=== PATIENT | male | born 1980 | race Caucasian/White ===

== ENCOUNTER 2023-11-07 10:52 | Emergency (ER) | payer OTHER, SELFPAY ==
[2023-11-07 10:52] VITALS: BP 153/84; PULSE 88; RESP 14; TEMP 36.8; O2SAT 100; BMI 30.8
--- NOTE | 2023-11-07 11:17 | ED_ITS ---
HPI - Back Pain/Injury <Denise Perez PA-C - Last Filed: 11/07/23 17:05> General Chief Complaint: Back Pain/Injury Stated Complaint: Right sided back pain Time Seen by Provider: 11/07/23 11:16 Source: patient History of Present Illness HPI Narrative: 43-year-old male with no reported past medical history presents to the ED with right-sided lower back pain since this morning. Patient states that he tweaked his lower back in the same location a few days ago when he fell off the bed but recovered from that. This morning, he endorses making a awkward movement when trying to leash his dog and tweaked the same spot again. Patient states that he took 600 mg of ibuprofen at 7:00 a.m. without relief. Patient states that he has been unable to stand up and straighten up and that his right lower back feels very stiff. Pain does not radiate down into the legs. No numbness, tingling, weakness. Patient has not urinated since the onset of pain this morning, however has not felt the need to urinate either. Related Data Previous Rx's Medication Instructions Recorded cyclobenzaprine 10 mg tablet 10 mg PO TID PRN muscle spasm 3 11/07/23 days #9 tabs oxycodone-acetaminophen 5 mg-325 1 tab PO Q4-6H PRN pain #9 tabs 11/07/23 mg tablet (Percocet) oxycodone-acetaminophen 5 mg-325 1 tab PO Q8H PRN pain 3 days #9 11/07/23 mg tablet (Percocet) tabs Allergies Allergy/AdvReac Type Severity Reaction Status Date / Time No Known Drug Allergies Allergy Verified 11/07/23 10:58 Review of Systems <Denise Perez PA-C - Last Filed: 11/07/23 17:05> Constitutional Constitutional: Denies chills, Denies fatigue, Denies fever(s), Denies frequent falls, Denies lethargy and Denies weakness Eyes Eyes: Denies change in vision, Denies eye discharge, Denies irritation and Denies loss of vision ENT Ears, Nose, Mouth, and Throat: Denies change in voice, Denies dizziness, Denies neck pain, Denies sore throat and Denies throat swelling Cardiovascular Cardiovascular: Denies chest pain, Denies irregular heart rhythm, Denies lightheadedness, Denies palpitations, Denies dyspnea, Denies dyspnea on exertion and Denies orthopnea Respiratory Respiratory: Denies cough, Denies dyspnea, Denies dyspnea on exertion and Denies wheezing Gastrointestinal Gastrointestinal: Denies abdominal pain, Denies change in bowel habits, Denies diarrhea, Denies nausea and Denies vomiting Musculoskeletal Musculoskeletal: Reports back pain, Denies neck pain and Denies numbness Integumentary/Breasts Skin/Breast: Denies pruritus, Denies erythema, Denies rash and Denies wounds Neurologic Neurologic: Denies behavioral changes, Denies confusion, Denies dizziness, Denies frequent falls, Denies loss of vision, Denies numbness and Denies weakness Psychiatric Psychiatric: Denies anxiety, Denies behavioral changes, Denies confusion, Denies depression, Denies homicidal ideation and Denies suicidal ideation Endocrine Endocrine: Denies fatigue, Denies flushing and Denies palpitations Hematologic/Lymphatic Hematologic/Lymphatic: Denies easy bruising Allergic/Immunologic Allergic/Immunologic: Denies urticaria, Denies throat swelling and Denies wheezing Patient History <Denise Perez PA-C - Last Filed: 11/07/23 17:05> Social History Smoking Status: Unknown if ever smoked Smoking Status: Unknown if ever smoked alcohol intake frequency: holidays/special occasions only Substance Use Type: does not use Exam <Denise Perez PA-C - Last Filed: 11/07/23 17:05> Narrative Exam Narrative: Const General:?cooperative, healthy appearing and comfortable [facility] Head:?normal to inspection Ears:?hearing grossly normal bilaterally Nose:?external nose normal Face and sinus:?normal facial exam and sinuses nontender Mouth:?oral mucosae normal Throat:?posterior oropharynx normal Eyes General:?appearance normal, both eyes and all related structures Neck Neck:?normal visual inspection and no lymphadenopathy noted Resp Effort & Inspection:?normal respiratory effort Auscultation:?clear to auscultation bilaterally Cardio Rate:?regular rate Rhythm:?regular rhythm Musculoskeletal No midline tenderness to palpation. No paraspinal tenderness to palpation. Patient is unable to stand up and straighten up due to pain. Neuro General:?patient alert, patient awake and patient oriented x3 Initial Vital Signs Initial Vital Signs: Vital Signs Temperature 98.2 F 11/07/23 10:52 Pulse Rate 88 11/07/23 10:52 Respiratory Rate 14 11/07/23 10:52 Blood Pressure 153/84 H 11/07/23 10:52 Pulse Oximetry 100 11/07/23 10:52 Oxygen Delivery Method Room Air 11/07/23 10:52 <Mehdi Steiner DO - Last Filed: 11/07/23 17:12> Initial Vital Signs Initial Vital Signs: Vital Signs Temperature 98.2 F 11/07/23 10:52 Pulse Rate 88 11/07/23 10:52 Respiratory Rate 14 11/07/23 10:52 Blood Pressure 153/84 H 11/07/23 10:52 Pulse Oximetry 100 11/07/23 10:52 Oxygen Delivery Method Room Air 11/07/23 10:52 Course <Denise Perez PA-C - Last Filed: 11/07/23 17:05> Orders Ordered: Discontinued Medications Cyclobenzaprine HCl (Cyclobenzaprine 10 Mg Tablet) 10 mg PO NOW ONE Stop: 11/07/23 11:31 Last Admin: 11/07/23 12:20 Dose: 10 mg Documented By: RB Ketorolac Tromethamine (Ketorolac 30 Mg/Ml Vial) 30 mg IM NOW ONE Stop: 11/07/23 11:31 Last Admin: 11/07/23 12:20 Dose: 30 mg Documented By: FATOU Oxycodone/Acetaminophen (Oxycodone/Acetaminophen 5/325 Tablet) 1 tab PO NOW ONE Stop: 11/07/23 12:55 Last Admin: 11/07/23 13:14 Dose: 1 tab Documented By: RB Vital Signs Vital signs: Vital Signs - 8 hr 11/07/23 10:52 11/07/23 14:13 Temperature 98.2 F 98.2 F Pulse Rate 88 86 Respiratory Rate 14 16 Blood Pressure 153/84 H 142/77 H Pulse Oximetry 100 98 Oxygen Delivery Method Room Air Room Air <Mehdi Steiner DO - Last Filed: 11/07/23 17:12> Orders Ordered: Discontinued Medications Cyclobenzaprine HCl (Cyclobenzaprine 10 Mg Tablet) 10 mg PO NOW ONE Stop: 11/07/23 11:31 Last Admin: 11/07/23 12:20 Dose: 10 mg Documented By: RB Ketorolac Tromethamine (Ketorolac 30 Mg/Ml Vial) 30 mg IM NOW ONE Stop: 11/07/23 11:31 Last Admin: 11/07/23 12:20 Dose: 30 mg Documented By: RB Oxycodone/Acetaminophen (Oxycodone/Acetaminophen 5/325 Tablet) 1 tab PO NOW ONE Stop: 11/07/23 12:55 Last Admin: 11/07/23 13:14 Dose: 1 tab Documented By: RB Vital Signs Vital signs: Vital Signs - 8 hr 11/07/23 10:52 11/07/23 14:13 Temperature 98.2 F 98.2 F Pulse Rate 88 86 Respiratory Rate 14 16 Blood Pressure 153/84 H 142/77 H Pulse Oximetry 100 98 Oxygen Delivery Method Room Air Room Air MDM - Back Pain/Injury <Denise Perez PA-C - Last Filed: 11/07/23 17:05> Lab Data Labs: Urine Dip Bedside Urine Glucose Negative Bedside Urine Bilirubin - Negative Bedside Urine Ketone - Negative Urine Specific [place] 1.015 Bedside Urine Occult Blood - Negative Bedside Urine pH 6.0 Bedside Urine Protein - Negative Bedside Urine Urobilinogen - Negative Bedside Urine Nitrite - Negative Bedside Urine Leukocytes - Negative Esterase MDM Narrative Medical decision making narrative: 43-year-old male with no reported past medical history presents to the ED with right-sided lower back pain since this morning. Concern for musculoskeletal sprain/strain of the back versus herniated disc versus fracture versus other. Physical exam is reassuring for no midline tenderness to palpation or paraspinal tenderness to palpation and there is no trauma. Unlikely fracture/dislocation. Will give Toradol and Flexeril for pain and reassess. Patient's pain improved somewhat with the medications, however was still unable to stand up and straighten up. Patient was given Percocet with good relief. Prescribed Percocet, Flexeril for the next few days. Recommend follow-up with PCP as soon as possible. ED return precautions discussed with patient. Patient verbalized understanding. Medical records reviewed: Yes <Mehdi Steiner DO - Last Filed: 11/07/23 17:12> Lab Data Labs: Urine Dip Bedside Urine Glucose Negative Bedside Urine Bilirubin - Negative Bedside Urine Ketone - Negative Urine Specific [place] 1.015 Bedside Urine Occult Blood - Negative Bedside Urine pH 6.0 Bedside Urine Protein - Negative Bedside Urine Urobilinogen - Negative Bedside Urine Nitrite - Negative Bedside Urine Leukocytes - Negative Esterase Discharge Plan Departure Patient Disposition: Home Clinical Impression: Strain of lumbar region Qualifiers: Encounter type: initial encounter Qualified Code(s): S39.012A - Strain of muscle, fascia and tendon of lower back, initial encounter Instructions: DI for Back Strain or Sprain Activity Restrictions/Additional Instructions: You were evaluated in the ED today for lower back pain. It appears that you have strained your lower back. Your symptoms improved with pain medications. You are being prescribed pain medication and a muscle relaxant for the next few days. Please follow-up with your PCP as soon as possible. Return to the ED if you have worsening symptoms, numbness, tingling, weakness, urinary difficulties. Prescriptions: New oxycodone-acetaminophen [Percocet] 5-325 mg tablet 1 tab PO Q8H PRN (Reason: pain) 3 Days Qty: 9 0RF cyclobenzaprine 10 mg tablet 10 mg PO TID PRN (Reason: muscle spasm) 3 Days Qty: 9 0RF oxycodone-acetaminophen [Percocet] 5-325 mg tablet 1 tab PO Q4-6H PRN (Reason: pain) Qty: 9 0RF Stand Alone Forms: Patient Portal/API ED Sign-out <Mehdi Steiner, DO - Last Filed: 11/07/23 17:12> Cosign ED Attending Cosignature Attestation: Dr Steiner Co-Sign Statement: I was available for consultation during this patient's emergency department visit. This chart is signed by myself for administrative purposes only. I did not have direct contact with this patient during this visit. They were seen independently by the [facility].
[2023-11-07] MEDS: CYCLOBENZAPRINE 10 MG TABLET PO (12:20)
[2023-11-07] MEDS: KETOROLAC 30 MG/ML VIAL IM (12:20)
--- NOTE | 2023-11-07 12:43 | PC.NURSE ---
This RN veriified with patient that they were not driving home prior to giving patient muscle relaxer. Patient stated no I'm not driving myself home.
[2023-11-07] MEDS: OXYCODONE/ACETAMINOPHEN 5/325 TABLET 1 TAB PO (13:14)
[2023-11-07 14:13] VITALS: BP 142/77; PULSE 86; RESP 16; TEMP 36.8; O2SAT 98
== END 2023-11-07 14:16 | disposition home or self-care (01) ==
PROVIDERS: Emergency Provider Student in an Organized Health Care Education/Training Program
DX: S39.012A Strain of muscle, fascia and tendon of lower back, initial encounter (principal); X50.1XXA Overexertion from prolonged static or awkward postures, initial encounter
CPT/HCPCS: 81003; 96372; 99283; J1885